=== PATIENT | female | born 1975 | race Caucasian/White ===

== ENCOUNTER 2019-01-18 09:53 | Day surgery (SDC) | payer BC, OTHER ==
[~2019-01-18] VITALS: Ht 154.9 cm; Wt 92.1 kg
[~2019-01-18 09:53] MED LIST: COMBAER6 INH; CYAN100050 PO; FERR325T18 PO; FOLI1TAB11 PO; NS 1,000 ML IV ONE; RANI300T PO; REME15TA PO; SUCR1TAB56 PO
[2019-01-18] MEDS ORDERED: LIDOCAINE 2% INJ 100 MG/5 ML SDV (FOR ANES.) As Ordered ONE (10:34)
[2019-01-18] MEDS ORDERED: PROPOFOL 200 MG/20 ML VIAL As Ordered ONE ×4 (10:34→11:11)
--- NOTE | 2019-01-18 11:06 | ROOR ---
Patient Name: Antonia Rangel Procedure Date: 01/18/2019 10:45 AM Date of : 1975 Age: 43 Room: [facility] Gender: Female Note Status: Finalized Procedure: Upper Endoscopy + Biopsies Indications: Iron deficiency anemia Providers: Sridhar Blevins MD Referring MD: MARY HILLIARD NP Requesting Provider: Medicines: Monitored Anesthesia Care Complications: No immediate complications. Procedure: Pre-Anesthesia Assessment: - The heart rate, respiratory rate, oxygen saturations, blood pressure, adequacy of pulmonary ventilation, and response to care were monitored throughout the procedure. The Endoscope was introduced through the mouth, and advanced to the second part of duodenum. The upper GI endoscopy was accomplished without difficulty. The patient tolerated the procedure well. Findings: The Z-line was irregular and was found 35 cm from the incisors. Multiple biopsies were obtained with cold forceps for evaluation to rule out Camp's Esophagus randomly at the gastroesophageal junction. A medium-sized hiatal hernia was present. Evidence of a gastric bypass was found. A gastric pouch with a small size was found. The staple line appeared intact. The gastrojejunal anastomosis was characterized by healthy appearing mucosa. This was traversed. The [id number] limb was characterized by healthy appearing mucosa. The exam was otherwise without abnormality. Impression: - Z-line irregular, 35 cm from the incisors. - Medium-sized hiatal hernia. - Gastric bypass with a small-sized pouch and intact staple line. Gastrojejunal anastomosis characterized by healthy appearing mucosa. - The examination was otherwise normal. - Multiple biopsies were obtained at the gastroesophageal junction. - The examination was otherwise normal. Recommendation: - Patient has a contact number available for emergencies. The signs and symptoms of potential delayed complications were discussed with the patient. Return to normal activities tomorrow. Written discharge instructions were provided to the patient. - Resume previous diet. - Discharge patient to home. - Follow an antireflux regimen. - Continue present medications. - Await pathology results. - Telephone GI clinic for pathology results in 1 week. - Return to referring physician. - The findings and recommendations were discussed with the patient's family. Sridhar Blevins MD Sridhar Blevins MD 01/18/2019 11:05:39 AM Electronically signed by Sridhar Blevins MD Number of Addenda: 0 Note Initiated On: 01/18/2019 10:45 AM Estimated Blood Loss: Estimated blood loss: none.
--- NOTE | 2019-01-18 11:18 | ROOR ---
Patient Name: Antonia Rangel Procedure Date: 01/18/2019 10:47 AM Date of : 1975 Age: 43 Room: [facility] Gender: Female Note Status: Finalized Procedure: Total Colonoscopy to Cecum Indications: Screening in patient at increased risk: Colorectal cancer in father before age 60 Providers: Sridhar Blevins MD Referring MD: MARY HILLIARD NP Requesting Provider: Medicines: Monitored Anesthesia Care Complications: No immediate complications. Procedure: Pre-Anesthesia Assessment: - The heart rate, respiratory rate, oxygen saturations, blood pressure, adequacy of pulmonary ventilation, and response to care were monitored throughout the procedure. The Colonoscope was introduced through the anus and advanced to the cecum, identified by appendiceal orifice and ileocecal valve. The colonoscopy was performed without difficulty. The patient tolerated the procedure well. The quality of the bowel preparation was excellent. Findings: The perianal and digital rectal examinations were normal. Non-bleeding internal hemorrhoids were found during retroflexion. The hemorrhoids were small and Grade I (internal hemorrhoids that do not prolapse). No other significant abnormalities were identified in a careful examination of the remainder of the colon. The exam was otherwise without abnormality on direct and retroflexion views. Impression: - Non-bleeding internal hemorrhoids. - The examination was otherwise normal on direct and retroflexion views. - No specimens collected. - The exam was otherwise normal to the cecum. Recommendation: - Patient has a contact number available for emergencies. The signs and symptoms of potential delayed complications were discussed with the patient. Return to normal activities tomorrow. Written discharge instructions were provided to the patient. - High fiber diet. - Discharge patient to home. - Continue present medications. - Repeat colonoscopy in 5 years for screening purposes. - Return to referring physician. - The findings and recommendations were discussed with the patient's family. Sridhar Blevins MD Sridhar Blevins MD 01/18/2019 11:17:46 AM Electronically signed by Sridhar Blevins MD Number of Addenda: 0 Note Initiated On: 01/18/2019 10:47 AM Estimated Blood Loss: Estimated blood loss: none.
[2019-01-18 11:45] VITALS: BP 190/90
== END 2019-01-18 12:17 | disposition home or self-care (01) ==
LOC: M OPP 09:53
PROVIDERS: ATTEND Internal Medicine Gastroenterology
DX: K64.0 First degree hemorrhoids (principal); R19.4 Change in bowel habit; Z80.0 Family history of malignant neoplasm of digestive organs; K22.8 Other specified diseases of esophagus; K44.9 Diaphragmatic hernia without obstruction or gangrene; D50.9 Iron deficiency anemia, unspecified; Z98.84 Bariatric surgery status; F17.210 Nicotine dependence, cigarettes, uncomplicated; Z79.899 Other long term (current) drug therapy

== ENCOUNTER 2019-04-27 13:19 | Emergency (ER) | payer BC ==
[~2019-04-27] VITALS: Ht 154.9 cm; Wt 89.0 kg
[~2019-04-27 13:19] MED LIST changes: -NS 1,000 ML IV ONE
[2019-04-27] MEDS ORDERED: METO50TA7 PO (14:50)
[2019-04-27] MEDS ORDERED: methylPREDNISolone INJ 125 MG/2 ML VIAL (J2930) IV ONE (15:30)
[2019-04-27] MEDS ORDERED: NS 1,000 ML IV ONE (15:30)
[2019-04-27] MEDS ORDERED: FAMOTIDINE IV BAG 20 MG in IV 1 EA IV ONE (15:45)
[2019-04-27 16:16] LABS: BASO % 0.7 % (0.0-1.0); EOS % 0.5 % (0.0-3.0); HEMATOCRIT 40.2 % (36.0-47.0); HEMOGLOBIN 13.4 g/dl (12.0-15.5); LYMPH # 1.1 10^3/uL (1.5-5.0); LYMPH % 18.8 % (24.0-44.0); MEAN CORPUSCULAR HEMOGLOBIN 34.3 pg (27.0-33.0); MEAN CORPUSCULAR HGB CONC 33.3 g/dl (32.0-36.5); MEAN CORPUSCULAR VOLUME 102.8 fl (80.0-96.0); MONO # 0.5 10^3/uL (0.0-0.8); MONO % 8.2 % (0.0-5.0); NEUTROPHILS % 71.4 % (36.0-66.0); PLATELET COUNT, AUTOMATED 162 10^3/uL (150-450); RED BLOOD COUNT 3.91 10^6/uL (4.00-5.40); WHITE BLOOD COUNT 5.6 10^3/uL (4.0-10.0)
[2019-04-27 16:19] LABS: APPEARANCE, URINE HAZY (CLEAR); BACTERIA, URINE AUTO NEGATIVE (NEGATIVE); BILIRUBIN, URINE AUTO 1+ (NEGATIVE); BLOOD, URINE BLOOD 2+ (NEGATIVE); COLOR, URINE AMBER (YELLOW); GLUCOSE, URINE (UA) AUTO NEGATIVE (NEGATIVE); KETONE, URINE AUTO 1+ mg/dL (NEGATIVE); LEUKOCYTE ESTERASE, URINE AUTO NEGATIVE (NEGATIVE); MUCUS, URINE SMALL (NEGATIVE); NITRITE, URINE AUTO NEGATIVE (NEGATIVE); PROTEIN, URINE AUTO 2+ mg/dL (NEGATIVE); RBC, URINE AUTO 5 /HPF (0-3); SPECIFIC GRAVITY URINE AUTO 1.027 (1.002-1.035); SQUAMOUS EPITHELIAL CELL UR AU 3 /HPF (0-6); WBC, URINE AUTO 0 /HPF (0-3)
[2019-04-27 16:48] LABS: HCG, SERUM QUALITATIVE NEGATIVE (NEGATIVE)
[2019-04-27 16:51] LABS: BLOOD UREA NITROGEN 5 MG/DL (7-18); CALCIUM LEVEL 8.1 MG/DL (8.5-10.1); CARBON DIOXIDE LEVEL 27 MEQ/L (21-32); CHLORIDE LEVEL 105 MEQ/L (98-107); CK-MB VALUE MASS 1.3 NG/ML (<3.6); CPK CREATINE PHOSPHOKINASE 142 U/L (26-192); CREATININE FOR GFR 0.59 MG/DL (0.55-1.30); GLOMERULAR FILTRATION RATE > 60.0 (>58); GLUCOSE, FASTING 99 MG/DL (70-100); MB/CK RELATIVE INDEX 0.92 (< OR =4); POTASSIUM SERUM 3.3 MEQ/L (3.5-5.1); SODIUM LEVEL 142 MEQ/L (136-145); TROPONIN I < 0.02 NG/ML (< 0.10)
[2019-04-27] MEDS ORDERED: lisinopriL 10 MG TAB PO ONE (17:15)
[2019-04-27] MEDS ORDERED: CHLORTHALIDONE 12.5MG PER 1/2 TABLET PO ONE (17:15)
--- NOTE | 2019-04-27 17:47 | REP ---
CHEST, TWO VIEWS: There is no evidence of acute infiltrate. No pleural effusion is seen. The heart is normal in size. The mediastinal silhouette is unremarkable. The visualized osseous structures are intact. IMPRESSION: No acute pulmonary disease. Electronically Signed by Trever Rangel MD 04/27/2019 08:23 P
[2019-04-27] MEDS ORDERED: TRIA1OI80 TOP (19:55)
[2019-04-27] MEDS ORDERED: CHLO125TA PO (19:55)
[2019-04-27] MEDS ORDERED: LISI10TA4 PO (19:55)
[2019-04-27 20:38] VITALS: BP 200/103
--- NOTE | 2019-04-28 08:03 | ECGEPIP ---
[facility] - ED Test Date: 2019-04-27 Pat Name: CASSIE RAND Department: Room: - Gender: Female Mmi Teacher: surya : 1975 Requested By: MILEY BANKS Order Number: [id number] Reading MD: Agapito Arnold Measurements Intervals [place] Rate: 101 P: 37 MN: 156 QRS: 3 QRSD: 90 T: 18 QT: 343 QTc: 445 Interpretive Statements SINUS TACHYCARDIA POOR R WAVE PROGRESSION POSSIBLE LEFT ATRIAL ENLARGEMENT MODERATE VOLTAGE CRITERIA FOR LVH, CONSIDER NORMAL VARIANT NO PRIORS FOR COMPARISON Electronically Signed on 04-28-2019 8:02:57 EST by Agapito Arnold
== END 2019-04-27 20:40 | disposition home or self-care (01) ==
LOC: M ED 13:19
DX: R21 Rash and other nonspecific skin eruption (principal); I10 Essential (primary) hypertension; D64.9 Anemia, unspecified; Z79.899 Other long term (current) drug therapy; F17.210 Nicotine dependence, cigarettes, uncomplicated
CPT/HCPCS: 71046; 80048; 81001; 82550; 82553; 84484; 84703; 85025; 93005; 96365; 96366; 96375; 99284; J2930

== ENCOUNTER 2019-05-31 19:48 | Emergency (ER) | payer BC ==
[~2019-05-31] VITALS: Ht 154.9 cm; Wt 83.6 kg
[~2019-05-31 19:48] MED LIST changes: +CHLO125TA PO; +LISI10TA4 PO; +METO50TA7 PO; +TRIA1OI80 TOP
[2019-05-31] MEDS ORDERED: METO50TA7 PO (20:25)
[2019-05-31] MEDS ORDERED: FLUO20CA22 PO (20:25)
[2019-05-31] MEDS ORDERED: ONDA-83 PO (20:25)
--- NOTE | 2019-05-31 20:33 | REPVR ---
PROCEDURE INFORMATION: Exam: CT Head Without Contrast Exam date and time: 05/31/2019 8:21 PM Age: 43 years old Clinical indication: Weakness, extremity; Additional info: TIA TECHNIQUE: Imaging protocol: Computed tomography of the head without contrast. Radiation optimization: All CT scans at this facility use at least one of these dose optimization techniques: automated exposure control; mA and/or kV adjustment per patient size (includes targeted exams where dose is matched to clinical indication); or iterative reconstruction. COMPARISON: No relevant prior studies available. FINDINGS: Brain: No intracranial mass, mass effect or midline shift. No acute intracranial hemorrhage. No CT evidence of acute cortical infarct. Ventricles: Ventricles, cisterns, and sulci are normal in size for age. Bones/joints: No calvarial fracture or destructive process. Sinuses: Imaged paranasal sinuses are clear. Mastoid air cells: Mastoid air cells are normally aerated. Orbits: Imaged orbits are unremarkable. Soft tissues: No focal extracranial soft tissue swelling. IMPRESSION: No acute or concerning focal intracranial abnormality. Electronically signed by: Tom Liu On 05/31/2019 20:32:29 PM
[2019-05-31 20:47] LABS: BASO % 0.6 % (0.0-1.0); EOS % 0.3 % (0.0-3.0); HEMATOCRIT 41.4 % (36.0-47.0); HEMOGLOBIN 14.2 g/dl (12.0-15.5); LYMPH # 0.8 10^3/uL (1.5-5.0); LYMPH % 11.1 % (24.0-44.0); MEAN CORPUSCULAR HEMOGLOBIN 35.3 pg (27.0-33.0); MEAN CORPUSCULAR HGB CONC 34.3 g/dl (32.0-36.5); MONO # 0.6 10^3/uL (0.0-0.8); NEUTROPHILS # 5.6 10^3/uL (1.5-8.5); NEUTROPHILS % 79.7 % (36.0-66.0); PLATELET COUNT, AUTOMATED 182 10^3/uL (150-450); RED BLOOD COUNT 4.02 10^6/uL (4.00-5.40)
[2019-05-31] MEDS ORDERED: ALPRAZolam 0.5 MG TAB PO ONE (21:00)
[2019-05-31 21:27] LABS: ALBUMIN 3.3 GM/DL (3.2-5.2); ALT/SGPT 42 U/L (12-78); BILIRUBIN,DIRECT 0.3 MG/DL (0.0-0.2); BILIRUBIN,TOTAL 0.7 MG/DL (0.2-1.0); BLOOD UREA NITROGEN 5 MG/DL (7-18); CALCIUM LEVEL 7.2 MG/DL (8.5-10.1); CARBON DIOXIDE LEVEL 27 MEQ/L (21-32); CHLORIDE LEVEL 95 MEQ/L (98-107); CK-MB VALUE MASS 1.7 NG/ML (<3.6); CPK CREATINE PHOSPHOKINASE 105 U/L (26-192); CREATININE FOR GFR 0.77 MG/DL (0.55-1.30); GLOMERULAR FILTRATION RATE > 60.0 (>58); GLUCOSE, FASTING 103 MG/DL (70-100); LIPASE 167 U/L (73-393); MB/CK RELATIVE INDEX 1.62 (< OR =4); POTASSIUM SERUM 2.7 MEQ/L (3.5-5.1); SODIUM LEVEL 135 MEQ/L (136-145); TOTAL PROTEIN 6.9 GM/DL (6.4-8.2); TROPONIN I < 0.02 NG/ML (< 0.10)
[2019-05-31] MEDS ORDERED: METOPROLOL TART 50 MG TAB PO ONE (21:45)
[2019-05-31] MEDS ORDERED: METOPROLOL 5 MG/5 ML VIAL IV ONE (21:45)
[2019-05-31] MEDS ORDERED: POTASSIUM CHLORIDE 10 MEQ SR TABLET PO ONE (21:45)
[2019-05-31 21:59] VITALS: BP 137/89
[2019-05-31 23:32] LABS: FREE T4 0.98 NG/DL (0.76-1.46)
[2019-06-01] VITALS: BP 141/86
--- NOTE | 2019-06-01 02:37 | ECGEPIP ---
[facility] - ED Test Date: 2019-05-31 Pat Name: CASSIE RAND Department: Room: - Gender: Female Senior Project Coordinator: UMANG : 1975 Requested By: Agapito Echevarria Order Number: [id number] Reading MD: Agapito Arnold Measurements Intervals [place] Rate: 66 P: 36 TX: 200 QRS: -19 QRSD: 110 T: 5 QT: 425 QTc: 447 Interpretive Statements SINUS RHYTHM POOR R WAVE PROGRESSION VOLTAGE CRITERIA FOR LVH NSTTW ABNORMALITIES SIMILAR TO 04/27/19 Electronically Signed on 06-01-2019 2:37:19 EDT by Agapito Arnold
--- NOTE | 2019-06-01 08:22 | REP ---
Portable chest x-ray: Single view. History: Nausea. TIA. Comparison study: April 27, 2019. Findings: The lungs are well inflated and clear. Pleural angles are sharp. Heart size is normal. Pulmonary vasculature is not increased. No bony abnormality. Impression: Negative portable chest x-ray. Electronically Signed by Black Disla MD 06/01/2019 08:13 A
== END 2019-06-01 00:16 | disposition home or self-care (01) ==
LOC: M ED 19:48 → EDBD 19:48 → M ED 06-01 00:16
DX: I10 Essential (primary) hypertension (principal); E87.6 Hypokalemia; F33.9 Major depressive disorder, recurrent, unspecified; F41.9 Anxiety disorder, unspecified; D50.9 Iron deficiency anemia, unspecified; Z79.899 Other long term (current) drug therapy; F17.210 Nicotine dependence, cigarettes, uncomplicated

== ENCOUNTER 2020-02-22 10:15 | Emergency (ER) | payer BC ==
[~2020-02-22] VITALS: Ht 154.9 cm; Wt 79.0 kg
[~2020-02-22 10:15] MED LIST changes: +FLUO20CA22 PO; +MIRT-62 PO; +ONDA-83 PO; -REME15TA PO
[2020-02-22] MEDS ORDERED: AMLO1TAB24 (10:24)
[2020-02-22 11:16] LABS: BASO % 0.7 % (0.0-1.0); EOS % 0.2 % (0.0-3.0); HEMATOCRIT 33.6 % (36.0-47.0); LYMPH # 0.4 10^3/uL (1.5-5.0); LYMPH % 6.4 % (24.0-44.0); MEAN CORPUSCULAR HEMOGLOBIN 38.5 pg (27.0-33.0); MEAN CORPUSCULAR HGB CONC 32.7 g/dl (32.0-36.5); MONO # 0.4 10^3/uL (0.0-0.8); MONO % 7.1 % (0.0-5.0); NEUTROPHILS # 4.9 10^3/uL (1.5-8.5); NEUTROPHILS % 85.1 % (36.0-66.0); PLATELET COUNT, AUTOMATED 240 10^3/uL (150-450); RED BLOOD COUNT 2.86 10^6/uL (4.00-5.40); WHITE BLOOD COUNT 5.7 10^3/uL (4.0-10.0)
[2020-02-22 11:19] LABS: MEAN CORPUSCULAR VOLUME 117.5 fl (80.0-96.0)
[2020-02-22] MEDS ORDERED: NS 1,000 ML IV ONE (11:30)
[2020-02-22 11:37] LABS: ANISOCYTOSIS 2+; PLATELET ESTIMATE NORMAL (NORMAL)
[2020-02-22 11:41] LABS: STOMATOCYTES 1+
[2020-02-22 11:54] LABS: HCG, SERUM QUALITATIVE NEGATIVE (NEGATIVE)
[2020-02-22 11:55] LABS: RSV AMPLIFICATION NEGATIVE (NEGATIVE)
[2020-02-22 12:03] LABS: ALBUMIN 3.1 GM/DL (3.2-5.2); ALT/SGPT 66 U/L (12-78); BILIRUBIN,DIRECT 0.3 MG/DL (0.0-0.2); BILIRUBIN,TOTAL 0.8 MG/DL (0.2-1.0); BLOOD UREA NITROGEN 6 MG/DL (7-18); CALCIUM LEVEL 7.8 MG/DL (8.5-10.1); CARBON DIOXIDE LEVEL 24 MEQ/L (21-32); CHLORIDE LEVEL 108 MEQ/L (98-107); CK-MB VALUE MASS 1.2 NG/ML (<3.6); CPK CREATINE PHOSPHOKINASE 85 U/L (26-192); CREATININE FOR GFR 0.47 MG/DL (0.55-1.30); FREE T4 0.67 NG/DL (0.76-1.46); GLOMERULAR FILTRATION RATE > 60.0 (>58); GLUCOSE, FASTING 108 MG/DL (70-100); LIPASE 191 U/L (73-393); MB/CK RELATIVE INDEX 1.41 (< OR =4); POTASSIUM SERUM 3.7 MEQ/L (3.5-5.1); SODIUM LEVEL 143 MEQ/L (136-145); TOTAL PROTEIN 6.5 GM/DL (6.4-8.2); TROPONIN I < 0.02 NG/ML (< 0.10)
--- NOTE | 2020-02-22 12:19 | REP ---
INDICATION: near syncope - pui. COMPARISON: 05/31/2019. TECHNIQUE: SINGLE PORTABLE AP VIEW OF THE CHEST WAS PERFORMED. FINDINGS: THERE IS NO ACUTE INFILTRATE OR PULMONARY EDEMA. LUNGS ARE CLEAR. HEART IS NOT SIGNIFICANTLY ENLARGED. MEDIASTINAL SILHOUETTE IS UNREMARKABLE. THE VISUALIZED OSSEOUS STRUCTURES ARE INTACT. IMPRESSION: NO ACUTE PULMONARY DISEASE. <Electronically signed by Trever Rangel > 02/22/20 [id number]
[2020-02-22] MEDS ORDERED: amLODIPine 5 MG TAB PO ONE (13:00)
[2020-02-22] MEDS ORDERED: METOPROLOL TART 50 MG TAB PO ONE (13:00)
[2020-02-22 13:08] VITALS: BP 197/101
[2020-02-22] MEDS ORDERED: POTASSIUM CHLORIDE 10 MEQ SR TABLET PO ONE (15:00)
[2020-02-22] MEDS ORDERED: CHLORTHALIDONE 12.5MG PER 1/2 TABLET PO ONE (15:00)
[2020-02-22] MEDS ORDERED: CHLO125TA PO (16:01)
[2020-02-22] MEDS ORDERED: K-TA1TAB PO (16:02)
[2020-02-22 16:15] VITALS: BP 164/81
--- NOTE | 2020-02-22 22:55 | ECGEPIP ---
[facility] [place] - ED Test Date: 2020-02-22 Pat Name: CASSIE RAND Department: Room: - Gender: Female A/C Technician: DOROTHY : 1975 Requested By: Alberto Art Order Number: [id number] Reading MD: Agapito Arnold Measurements Intervals [place] Rate: 101 P: 55 IN: 187 QRS: 24 QRSD: 84 T: 42 QT: 358 QTc: 464 Interpretive Statements SINUS TACHYCARDIA POOR R WAVE PROGRESSION NSTTW ABNORMALITY(S) SIMILAR TO 05/31/19 Electronically Signed on 02-22-2020 22:55:33 EST by Agapito Arnold
== END 2020-02-22 16:34 | disposition home or self-care (01) ==
LOC: M ED 10:15
DX: R11.10 Vomiting, unspecified (principal); R19.7 Diarrhea, unspecified; R42 Dizziness and giddiness; I10 Essential (primary) hypertension; R00.0 Tachycardia, unspecified; F41.9 Anxiety disorder, unspecified; Z79.899 Other long term (current) drug therapy

== ENCOUNTER → 2020-04-03 | Outpatient (CLI) | payer BC ==
[~2020-04-03] MED LIST changes: +AMLO1TAB24; +K-TA1TAB PO; +LISI10TA22 PO; -LISI10TA4 PO
--- NOTE | 2020-04-03 10:44 | REP ---
INDICATION: CERVICALGIA COMPARISON: None. TECHNIQUE: Internal rotation, external rotation, and Y view. FINDINGS: No acute fracture or dislocation. The acromioclavicular and glenohumeral joints are intact and essentially age-appropriate. No periarticular calcifications or overt degenerative changes are appreciated. Sub acromial space is normal. Surrounding soft tissues are unremarkable. IMPRESSION: Normal age-appropriate right shoulder radiographs. <Electronically signed by Ryan Guzman > 04/03/20 [id number]
--- NOTE | 2020-04-03 10:46 | REP ---
INDICATION: CERVICALGIA COMPARISON: None. TECHNIQUE: AP, lateral, flexion/extension, bilateral oblique, and open-mouth views. FINDINGS: Alignment and lordosis is maintained. There is no evidence for acute fracture / compression injury or subluxation. Very minimal disc space narrowing at C4-5 and C5-6 is suggested. Oblique views demonstrate patent neural foramen. Open mouth view demonstrates normal C1-C2 articulation and odontoid process. IMPRESSION: Minimal disc space narrowing. <Electronically signed by Ryan Guzman > 04/03/20 [id number]
== END ==
LOC: M RAD 10:08
PROVIDERS: ATTEND Nurse Practitioner Adult Health
DX: M54.2 Cervicalgia (principal); M25.511 Pain in right shoulder

== ENCOUNTER → 2020-06-15 | Outpatient (CLI) | payer BC ==
--- NOTE | 2020-06-15 10:08 | REPMRS ---
Patient History The patient states she has not had a clinical breast exam in over a year. Family history of colorectal cancer at age 52 in father, breast cancer at age 50 or over in paternal grandmother, unknown cancer at age 50 or over in paternal grandfather. Took hormonal contraceptives for 3 years. Digital Woman Screen Mammo: June 15, 2020 - Exam #: [id number] Bilateral CC and MLO view(s) were taken. Technologist: Charlene Schulz, RT No prior studies available for comparison. FINDINGS: There are scattered fibroglandular densities. The Volpara volumetric breast density category is: B. There is a small benign dermal nodule projecting medially and inferiorly on the left. There is no evidence of dominant mass, architectural distortion, or grouped microcalcification typical of malignancy. 3-D tomosynthesis shows no additional findings. Assessment: BI-RADS/ACR category 2 mammogram. Benign Findings. Recommendation Routine screening mammogram of both breasts in 1 year (for women over age 40). This patient's [facility] Lifetime Breast Cancer RIsk is estimated at 12.2 %. This mammogram was interpreted with the aid of an FDA-approved computer-aided dectection system. Electronically Signed By: Kelby Disla MD 06/15/20 [id number]
--- NOTE | 2020-06-15 15:29 | DEXAMM ---
INDICATION: Z13.820 SCR FOR OSTEOPOROSIS. COMPARISON: None. TECHNIQUE: Bone density was measured using dual-energy x-ray absorptiometry (DEXA). FINDINGS: AP SPINE L1-L4 BMD 0.995 g/cm2 Young Adult T-Score -1.6 Age Matched Z-Score -1.6. LT FEMUR, TOTAL BMD 0.886 g/cm2 Young Adult T-Score -1.0 Age Matched Z-Score -0.7. LT NECK BMD 0.753 g/cm2 Young Adult T-Score -2.0 Age Matched Z-Score -1.5. RT FEMUR, TOTAL BMD 0.907 g/cm2 Young Adult T-Score -0.8 Age Matched Z-Score -0.5. RT NECK BMD 0.810 g/cm2 Young Adult T-Score -1.6 Age Matched Z-Score -1.1. IMPRESSION: There is low bone density of the spine. There is low bone density of the left hip. There is low bone density of the right hip. FOLLOW-UP: Recommendation for the next bone density exam: 2 years. <Electronically signed by Trever Rangel > 06/15/20 [id number]
== END ==
LOC: M WHC 08:45
PROVIDERS: ATTEND Nurse Practitioner Family
DX: Z12.31 Encounter for screening mammogram for malignant neoplasm of breast (principal); Z13.820 Encounter for screening for osteoporosis; Z80.0 Family history of malignant neoplasm of digestive organs; Z92.0 Personal history of contraception

== ENCOUNTER → 2022-01-29 | Outpatient (CLI) | payer BC ==
[2022-01-29 10:39] LABS: BASO # 0.2 10^3/uL (0.0-0.2); BASO % 1.4 % (0.0-1.0); EOS # 0.6 10^3/uL (0.0-0.5); EOS % 4.7 % (0.0-3.0); HEMOGLOBIN 10.2 g/dl (12.0-15.5); LYMPH # 1.9 10^3/uL (1.5-5.0); MEAN CORPUSCULAR HEMOGLOBIN 31.4 pg (27.0-33.0); MEAN CORPUSCULAR HGB CONC 29.1 g/dl (32.0-36.5); MEAN CORPUSCULAR VOLUME 107.7 fl (80.0-96.0); MONO # 0.8 10^3/uL (0.0-0.8); MONO % 6.9 % (2.0-8.0); NEUTROPHILS # 8.2 10^3/uL (1.5-8.5); NEUTROPHILS % 68.3 % (36.0-66.0); PLATELET COUNT, AUTOMATED 938 10^3/uL (150-450); RED BLOOD COUNT 3.25 10^6/uL (4.00-5.40)
[2022-01-29 11:49] LABS: CARBON DIOXIDE LEVEL 27 MMOL/L (20-31); CHLORIDE LEVEL 102 MMOL/L (98-107); POTASSIUM SERUM 5.3 MMOL/L (3.5-5.1); SODIUM LEVEL 140 MMOL/L (136-145)
[2022-01-29 11:50] LABS: ALBUMIN 3.4 G/DL (3.2-5.2)
[2022-01-29 11:54] LABS: BLOOD UREA NITROGEN 6 MG/DL (9-23); TRIGLYCERIDES LEVEL 174 MG/DL (<150)
[2022-01-29 11:55] LABS: GLUCOSE, FASTING 92 MG/DL (60-100)
[2022-01-29 11:57] LABS: CHOLESTEROL LEVEL 190 MG/DL (<200); CHOLESTEROL RISK RATIO 4.35 (<5); CREATININE FOR GFR 0.65 MG/DL (0.55-1.30); GLOMERULAR FILTRATION RATE > 60.0 (>58); HDL CHOLESTEROL 43.6 MG/DL (>40); LDL CHOLESTEROL 111.6 MG/DL (<100); NON-HDL-C 146 MG/DL; PHOSPHORUS LEVEL 4.8 MG/DL (2.5-4.9)
[2022-01-29 12:01] LABS: THYROID STIMULATING HORMONE 1.497 uIU/ML (0.55-4.78)
[2022-01-29 12:03] LABS: FREE T4 1.18 NG/DL (0.89-1.76)
[2022-01-29 12:14] LABS: HEPATITIS B SURFACE ANTIGEN NEGATIVE (NEGATIVE)
[2022-01-29 12:35] LABS: HEPATITIS B CORE ANTIBODY IGM NEGATIVE (NEGATIVE)
== END ==
LOC: M LAB 09:37
PROVIDERS: ATTEND Physician Assistant
DX: I10 Essential (primary) hypertension (principal)

== ENCOUNTER → 2022-09-24 | Outpatient (CLI) | payer BC ==
[~2022-09-24] MED LIST changes: +CYAN-1 PO; -CYAN100050 PO
== END ==
LOC: M RAD 10:33
PROVIDERS: ATTEND Nurse Practitioner Family
DX: R10.2 Pelvic and perineal pain (principal); D25.9 Leiomyoma of uterus, unspecified; N85.8 Other specified noninflammatory disorders of uterus

== ENCOUNTER → 2022-10-25 | Outpatient (REF) | payer BC | LOC: M SFHCWAGY 17:38 | PROVIDERS: ATTEND Nurse Practitioner Family | DX: Z12.4 Encounter for screening for malignant neoplasm of cervix (principal); N85.00 Endometrial hyperplasia, unspecified ==

== ENCOUNTER 2023-06-06 08:52 | Day surgery (SDC) | payer BC ==
[~2023-06-06] VITALS: Ht 152.4 cm; Wt 67.0 kg
[~2023-06-06 08:52] MED LIST changes: +FERR325T19 PO; +METO1TAB7 PO; -MIRT-62 PO; +MIRT-88 PO; +MIRT1TAB PO; +OMEP40CA5 PO; +VENL37TA PO; +VITA200012 PO
[2023-06-06] MEDS ORDERED: LIDOCAINE 2% 100MG/5ML SDV (FOR ANES.) As Ordered ONE (09:07)
[2023-06-06] MEDS ORDERED: fentaNYL 100 MCG/2 ML INJECTION As Ordered ONE (09:07)
[2023-06-06] MEDS ORDERED: ROCURONIUM BROMIDE 50MG/5ML VIAL As Ordered ONE (09:07)
[2023-06-06] MEDS ORDERED: propofoL 200 MG/20 ML VIAL As Ordered ONE (09:07)
[2023-06-06] MEDS ORDERED: MIDAZOLAM INJ 2MG/2ML VIAL As Ordered ONE (09:07)
[2023-06-06] MEDS ORDERED: LR 1,000 ML IV SCH (09:35)
[2023-06-06 09:50] LABS: HEMATOCRIT 39.9 % (36.0-47.0); HEMOGLOBIN 12.7 g/dl (12.0-15.5); MEAN CORPUSCULAR HGB CONC 31.8 g/dl (32.0-36.5); MEAN CORPUSCULAR VOLUME 94.1 fl (80.0-96.0); PLATELET COUNT, AUTOMATED 341 10^3/uL (150-450); RED BLOOD COUNT 4.24 10^6/uL (4.00-5.40); WHITE BLOOD COUNT 6.1 10^3/uL (4.0-10.0)
[2023-06-06] MEDS ORDERED: METHYLENE BLUE 0.5% (5MG/ML) 10 ML AMP (PROVAYBLUE) As Ordered ONE (11:11)
[2023-06-06] MEDS ORDERED: HYDROmorphone HCL 2MG/ML 1ML VIAL As Ordered ONE (11:54)
[2023-06-06] MEDS ORDERED: ACETAMINOPHEN 1000MG 100ML IV BAG As Ordered ONE (11:58)
[2023-06-06] MEDS ORDERED: ONDANSETRON 4MG 2ML VIAL As Ordered ONE (11:58)
[2023-06-06] MEDS: ceFAZolin SOD 2 GM in IV 1 EA IV ONE (12:00)
[2023-06-06] MEDS ORDERED: PHENYLephrine 500MCG 5ML (100MCG/ML) SYRINGE As Ordered ONE (12:12)
[2023-06-06] MEDS ORDERED: GLYCOPYRROLATE INJ 0.2 MG/ML 2 ML VIAL As Ordered ONE (12:22)
[2023-06-06] MEDS ORDERED: fentaNYL 100 MCG/2 ML INJECTION IV PRN (13:55)
[2023-06-06] MEDS ORDERED: ONDANSETRON 4MG 2ML VIAL IV PRN (13:55)
[2023-06-06] MEDS ORDERED: MORPHINE 2 MG/ML 1ML VIAL IV PRN (13:55)
[2023-06-06] MEDS: oxyCODONE 5MG TAB PO PRN (14:17)
[2023-06-06] MEDS ORDERED: PERCOCET 5MG/325MG TAB PO PRN (14:20)
[2023-06-06 15:12] VITALS: BP 159/80; TEMP 97.9; O2SAT 100
== END 2023-06-06 15:23 | disposition home or self-care (01) ==
LOC: M SDC 08:52
PROVIDERS: ATTEND Obstetrics & Gynecology
DX: D25.1 Intramural leiomyoma of uterus (principal); D25.2 Subserosal leiomyoma of uterus; N83.8 Other noninflammatory disorders of ovary, fallopian tube and broad ligament; N88.8 Other specified noninflammatory disorders of cervix uteri; N84.0 Polyp of corpus uteri; N93.9 Abnormal uterine and vaginal bleeding, unspecified; Z98.51 Tubal ligation status; D64.9 Anemia, unspecified; I10 Essential (primary) hypertension; R56.9 Unspecified convulsions; K21.9 Gastro-esophageal reflux disease without esophagitis; Z79.899 Other long term (current) drug therapy; Z98.84 Bariatric surgery status; F17.290 Nicotine dependence, other tobacco product, uncomplicated; F32.A Depression, unspecified
CPT/HCPCS: 58571; 81025; 85027; 86850; 86900; 86901; 88307; J0131; J0665; J0690; J1100; J1170; J2250; J2371; J2405; J3010; S2900